=== PATIENT | female | born 2000 | race Caucasian/White ===

== ENCOUNTER 2019-12-20 13:01 | Emergency (ER) | payer OTHER ==
[~2019-12-20] VITALS: Ht 167.6 cm; Wt 65.9 kg
[2019-12-20 13:23] VITALS: BP 108/65; TEMP 97.3
[2019-12-20 16:13] VITALS: PULSE 71
== END 2019-12-20 16:13 | disposition home or self-care (01) ==
LOC: COL.ER 13:01
DX: G43.909 Migraine, unspecified, not intractable, without status migrainosus (principal)
CPT/HCPCS: J1200; J1885; J2550; J2765; J7030

== ENCOUNTER 2021-07-26 20:02 | Emergency (ER) | payer OTHER ==
[~2021-07-26] VITALS: Ht 167.6 cm; Wt 61.4 kg
[2021-07-26 21:11] LABS: BASO % 0.5 % (0.0-2.0); EOS % 0.5 % (0-4.0); GRAN % 66.7 % (42.2-75.2); HEMATOCRIT 40.7 % (37.0-47.0); HEMOGLOBIN 13.7 g/dl (12.5-16.0); LYMPH % 17.4 % (20.0-51.0); MEAN CELL VOLUME 86 fl (80.0-100.0); MEAN CORPUSCULAR HEMOGLOBIN 29 pg (27.0-31.0); MEAN CORPUSCULAR HGB CONC 34 g/dl (33.0-37.0); MEAN PLATELET VOLUME 9.7 fl (7.4-10.4); MONO # 0.9 K/mm3 (0.1-0.6); MONO % 14.6 % (1.7-9.3); PLATELET COUNT 221 K/mm3 (130-400); RED BLOOD COUNT 4.72 M/mm3 (4.10-5.30); REDCELL DISTRIBUTION WIDTH-CV 11.9 % (11.5-14.5)
[2021-07-26 21:29] LABS: BILIRUBIN,TOTAL 0.2 mg/dL (0.2-1.2); C-REACTIVE PROTEIN 0.8 mg/dL (0.00-0.50); CALCIUM 9.1 mg/dL (8.4-10.2); CREATININE, serum 0.71 mg/dL (0.57-1.11); POTASSIUM 3.6 mmol/L (3.5-4.5); TOTAL PROTEIN 7.2 gm/dL (6.2-8.1)
[2021-07-26 21:58] LABS: COLLECTION METHOD CLEAN CATCH
[2021-07-26 22:05] LABS: PH 7 (5-8); SQUAMOUS EPITHELIAL 0-2 /hpf; URINE APPEARANCE Clear; URINE BACTERIA Rare /hpf; URINE BILIRUBIN Negative (NEGATIVE); URINE BLOOD Negative (NEGATIVE); URINE COLOR Yellow; URINE GLUCOSE Negative (NEGATIVE); URINE KETONE Negative (NEGATIVE); URINE LEUKOCYTE ESTERASE Negative (NEGATIVE); URINE NITRATE Negative (NEGATIVE); URINE PROTEIN(semi-quant) Negative (NEGATIVE); URINE RBC None Seen /hpf; URINE UROBILINOGEN Negative (NEGATIVE)
[2021-07-26] MEDS ORDERED: PROTONIX 40MG T40 MG PO (22:25)
[2021-07-26 22:57] VITALS: BP 126/69; PULSE 78; TEMP 98
== END 2021-07-26 23:01 | disposition home or self-care (01) ==
LOC: COL.ER 20:02
PROVIDERS: Emergency Medicine
DX: R10.13 Epigastric pain (principal)
CPT/HCPCS: C9113; J2550; J7030

== ENCOUNTER 2021-09-01 07:41 | Day surgery (SDC) | payer OTHER ==
[~2021-09-01] VITALS: Ht 167.6 cm; Wt 61.6 kg
[~2021-09-01 07:41] MED LIST: PROTONIX 40MG T40 MG PO
[2021-09-01] MEDS ORDERED: NEXPLANON68 MG ID (07:48)
[2021-09-01] MEDS ORDERED: SINGULAIR 110 MG/TAB PO (07:48)
[2021-09-01] MEDS ORDERED: XYZAL5 MG PO (07:48)
[2021-09-01] MEDS ORDERED: ALBUTEROL S0.4 MG/ML PO (07:48)
[2021-09-01] MEDS ORDERED: BREO IH (07:49)
[2021-09-01] MEDS ORDERED: FLONASE NASAL S16 GM NS (07:49)
[2021-09-01 08:11] VITALS: BP 109/82; PULSE 87; TEMP 97.7
[2021-09-01 08:55] VITALS: BP 100/76; PULSE 82
--- NOTE | 2021-09-01 08:55 | NUR ---
Patient returns to [facility] per cart after having EGD and is awake and alert. Temp 97.2 and room air sats 100%. Patient was able to stand and transfer self from cart to recliner with one person assist. IV fluids infusing. Parents in room. Call light in reach.
[2021-09-01 09:10] VITALS: BP 109/74; PULSE 70
--- NOTE | 2021-09-01 09:10 | NUR ---
Gag reflux present and is sipping on juice and eating muffin. Tolerates well.
[2021-09-01 09:25] VITALS: BP 111/73; PULSE 71
--- NOTE | 2021-09-01 09:25 | NUR ---
Denies difficulty swallowing and tolerated food and fluids. Dr. Mcgee in the room talking with patient and parents. All questions answered.
--- NOTE | 2021-09-01 09:35 | NUR ---
IV discontinued and site is free of redness or swelling. Patient dresses self. Dismissal instructions given and voices understanding of these.
--- NOTE | 2021-09-01 09:39 | NUR ---
Patient dismissed to home driven by parents and taken to the vehicle per wheelchair and assisted into car with dismissal instructions in hand.
== END 2021-09-01 09:39 | disposition home or self-care (01) ==
LOC: SDCO 07:41
DX: K29.50 Unspecified chronic gastritis without bleeding (principal); K21.9 Gastro-esophageal reflux disease without esophagitis; J45.909 Unspecified asthma, uncomplicated; G43.909 Migraine, unspecified, not intractable, without status migrainosus; Z79.899 Other long term (current) drug therapy
CPT/HCPCS: J7030